=== PATIENT | male | born 1950 | race Caucasian/White ===

== ENCOUNTER 2018-07-03 05:50 | Day surgery (SDC) | payer OTHER ==
[~2018-07-03 05:50] MED LIST: ATORVASTATIN CA10 MG; CALTRATE 600 +1 EACH; ENALAPRIL MALEAT5 MG; OMEGA-3100 MG
== END 2018-07-03 18:40 | disposition home or self-care (01) ==
LOC: CIR.AMB 05:50
DX: Z41.1 Encounter for cosmetic surgery (principal)